=== PATIENT | male | born 1960 | race African-American/Black ===

== ENCOUNTER 2025-03-28 17:55 | Emergency (ER) | payer OTHER ==
[~2025-03-28] VITALS: Ht 170.2 cm; Wt 109.0 kg
[~2025-03-28 17:55] MED LIST: COR6 PO; FURO-151 PO; KEPP500 PO; LISI20TA31 PO; METF-414 PO; POTA10CA93 PO
[2025-03-28 17:57] VITALS: O2SAT 99
[2025-03-28 19:16] LABS: BASOPHILS % 1.0 % (0.0-2.0); EOSINOPHILS % 3.7 % (0.0-5.0); HEMATOCRIT. 36.5 % (42.0-52.0); HEMOGLOBIN. 11.6 g/dL (14.0-18.0); LYMPHOCYTES % 10.9 % (20.0-50.0); MEAN PLATELET VOLUME 9.4 fl (7.4-10.4); MONOCYTES % 5.3 % (2.0-8.0); NEUTROPHILS % 79.1 % (40.0-76.0); PLATELET 176 x1000/uL (130-400); RED BLOOD CELL COUNT 4.48 mill/uL (4.7-6.1); RED CELL DISTRIBUTION WIDTH 15.5 % (11.6-14.6)
[2025-03-28 20:05] LABS: CREATININE 2.1 mg/dL (0.6-1.3); UREA NITROGEN BLOOD 29 mg/dL (9-23)
[2025-03-28 20:07] LABS: ASPARTATE AMINOTRANSFERASE 20 IU/L (<34); BILIRUBIN DIRECT 0.1 mg/dL (<=3.0); BILIRUBIN TOTAL 0.4 mg/dL (0.1-1.0); PROTEIN TOTAL 6.7 g/dL (6.0-8.3)
[2025-03-28] MEDS ORDERED: DEXTROSE 50% WATER 50ML SYRINGE IV ONE ×2 (20:14→21:45)
[2025-03-28] MEDS: DEXTROSE 50% WATER 50ML SYRINGE IV ONE (20:21)
[2025-03-28 22:12] VITALS: BP 161/87; PULSE 100; RESP 20; TEMP 36.4; O2SAT 4
== END 2025-03-28 22:35 | disposition short-term general hospital (02) ==
LOC: ER 17:55 → EDBEDREQ 20:54 → EDBEDREQTM 20:54 → ER 22:35 → CMPBEDREQ 03-29 00:07
DX: R56.9 Unspecified convulsions (principal); G93.40 Encephalopathy, unspecified; N17.9 Acute kidney failure, unspecified; E11.649 Type 2 diabetes mellitus with hypoglycemia without coma; Z79.84 Long term (current) use of oral hypoglycemic drugs; Z98.890 Other specified postprocedural states; Z79.899 Other long term (current) drug therapy
CPT/HCPCS: 80076; 80048; 80320; 82962; 83735; 85025; 36415; 71045; 70450; 93005; 96374; 99291; Z7610; G0480